=== PATIENT | female | born 1985 | race Caucasian/White ===

== ENCOUNTER 2018-03-06 21:15 | Emergency (ER) | payer SELFPAY ==
[~2018-03-06] VITALS: Ht 152.4 cm; Wt 56.0 kg
[2018-03-06] MEDS ORDERED: ACETAMINOPHEN 500 MG TABLET PO ONE (23:00)
[2018-03-06] MEDS ORDERED: ACETAMINOPHEN 500 MG TABLET ONE (23:01)
[2018-03-06 23:16] LABS: BASOPHILS # (AUTO) 0.03 x10^3/uL (0-0.1); BASOPHILS % (AUTO) 1 % (0-1); EOSINOPHILS # (AUTO) 0.04 x10^3/uL (0-0.4); EOSINOPHILS % (AUTO) 1 % (1-7); LYMPHOCYTES # (AUTO) 1.93 x10^3/uL (1-3.4); LYMPHOCYTES % (AUTO) 38 % (22-44); MD NO; MEAN CORPUSCULAR HEMOGLOBIN 28.6 pg (27.0-34.8); MEAN CORPUSCULAR HGB CONC 33.1 g/dL (32.4-35.8); MEAN CORPUSCULAR VOLUME 86.4 fL (80-100); MEAN PLATELET VOLUME 8.3 fL (7.4-10.4); MONOCYTES # (AUTO) 0.43 x10^3/uL (0.2-0.8); MONOCYTES % (AUTO) 8 % (2-9); NEUTROPHILS # (AUTO) 2.66 x10^3/uL (1.8-6.8); NEUTROPHILS % (AUTO) 52 % (42-75); PLATELET COUNT 193 x10^3/uL (130-400); RED BLOOD COUNT 4.36 x10^6/uL (3.82-5.3); RED CELL DISTRIBUTION WIDTH 14.1 % (9.6-15.2)
[2018-03-06 23:27] LABS: ANION GAP 6 mmol/L (5-15); CALCIUM 8.8 mg/dL (8.5-10.1); CHLORIDE 108 mmol/L (98-107); CREATININE 0.64 mg/dL (0.55-1.02)
[2018-03-07] MEDS ORDERED: KETOROLAC 30 MG/1 ML IM ONE
[2018-03-07] MEDS ORDERED: KETOROLAC 30 MG/1 ML ONE (00:04)
[2018-03-07 00:35] VITALS: BP 102/46
[2018-03-07 00:47] LABS: HCT (SEDRATE) 37.6 % (34.6-47.8)
== END 2018-03-07 01:10 | disposition home or self-care (01) ==
LOC: ED 23:59
DX: M26.622 Arthralgia of left temporomandibular joint (principal)
CPT/HCPCS: 36415; 70100; 80048; 85025; 85651; 96372; 99285; J1885

== ENCOUNTER 2020-05-06 22:13 | Emergency (ER) | payer MEDICAID ==
[~2020-05-06] VITALS: Ht 160 cm; Wt 59.2 kg
[2020-05-06 22:20] VITALS: BP 134/87
--- NOTE | 2020-05-07 00:04 | NUR ---
REPORT RECEIVED FROM LINDY TRAN.
== END 2020-05-07 00:48 | disposition home or self-care (01) ==
LOC: ED 05-07 00:15
DX: S93.402A Sprain of unspecified ligament of left ankle, initial encounter (principal); X58.XXXA Exposure to other specified factors, initial encounter; Y93.89 Activity, other specified; Y92.322 Soccer field as the place of occurrence of the external cause; Y99.8 Other external cause status
CPT/HCPCS: 99284